=== PATIENT | male | born 1945 ===

== ENCOUNTER 2017-05-08 06:16 | Day surgery (SDC) | payer MEDICARE ==
[2017-05-04 08:04] VITALS: BMI 26.4
[2017-05-08 06:49] LABS: ADD MANUAL DIFF? NO
[2017-05-08 07:06] LABS: INR 0.99 (0.93-1.08); PARTIAL THROMBOPLASTIN TIME 27.2 Seconds (23.7-30.8)
[2017-05-08 07:08] LABS: BASO # 0.03 K/mm3 (0.0-2.0); BASO % 0.4 % (0.0-3.0); EOS # 0.1 (0.0-0.7); EOS % 1.9 % (1.5-5.0); GRAN # 4.42 (1.4-6.5); GRAN % 63.8 % (50.0-68.0); HEMATOCRIT 38.5 % (42.0-52.0); LYMPH # 1.6 (1.2-3.4); LYMPH % 23.5 % (22.0-35.0); MEAN CORPUSCULAR HEMOGLOBIN 31.1 pg (25.0-35.0); MEAN CORPUSCULAR HGB CONC 34.5 g/dl (31.0-37.0); MEAN PLATELET VOLUME 10.1 fl (7.0-11.0); MONO # 0.7 (0.1-0.6); MONO % 10.4 % (1.0-6.0); PLATELET COUNT 164 10^3/uL (120.0-450.0); RED CELL DISTRIBUTION WIDTH 13.2 % (11.5-14.5); WHITE BLOOD COUNT 6.9 10^3/ul (4.5-11.0)
[2017-05-08] MEDS ORDERED: Lidocaine 2% Inj (20ml) ONE (08:06)
[2017-05-08] MEDS ORDERED: Phenylephrine 10 mg/ml Inj ONE (08:07)
[2017-05-08] MEDS ORDERED: Iodixanol 320 MG/ML 200 ML BOTTLE IV ONE (08:07)
[2017-05-08] MEDS ORDERED: Nitroglycerin 50mg in D5W 0 MG/0 ML BOTTLE IV ONE (08:07)
[2017-05-08] MEDS ORDERED: Iohexol 350mgl/ml 50 ML ONE (08:07)
[2017-05-08] MEDS ORDERED: Iodixanol 320 MG/ML 100 ML BOTTLE IV ONE (08:07)
[2017-05-08 08:32] LABS: BLOOD UREA NITROGEN 12 mg/dL (7-21); CALCIUM 9.3 mg/dL (8.4-10.5); CARBON DIOXIDE 23 mmol/L (21-33); CHLORIDE 105 mmol/L (95-110); CHOLESTEROL 134 mg/dL (130-200); GFR AFRICAN-AMERICAN > 60; GLUCOSE,RANDOM 163 mg/dL (70-110); POTASSIUM 4.4 mmol/L (3.6-5.0); SODIUM 139 mmol/L (132-148)
[2017-05-08] MEDS: Midazolam 2 MG/2 ML VIAL ONE ×2 (08:52→11:44)
[2017-05-08] MEDS: Metoprolol 1 mg/ml Inj IVP ONE ×2 (09:30→11:43)
[2017-05-08] MEDS ORDERED: Sodium Chloride 0.45% 1,000 ML IV SCH (09:45)
[2017-05-08 10:44] VITALS: TEMP 98.1; O2SAT 100
[2017-05-08 10:45] VITALS: RESP 16
--- NOTE | 2017-05-08 10:47 | CP.PCM.PN ---
Subjective - Date & Time of Evaluation Date of Evaluation: 05/08/17 Time of Evaluation: 10:00 - Subjective Subjective: cardiac cath performed. stent RCA with bare metal stent. continue ASA/Plavix. d/c home today. Objective - Vital Signs/Intake and Output Vital Signs (last 24 hours): Temp Pulse Resp BP Pulse Ox 98.1 F 77 16 148/82 100 05/08/17 10:10 05/08/17 10:40 05/08/17 10:40 05/08/17 10:40 05/08/17 10:10 Intake and Output: 05/08/17 05/08/17 06:59 18:59 Intake Total 10 Balance 10 - Medications Medications: Current Medications Sodium Chloride (Sodium Chloride 0.45%) 1,000 mls @ 100 mls/hr IV .Q10H MARIAMA Last Admin: 05/08/17 10:19 Dose: 100 mls/hr - Labs Labs: 05/08/17 06:30 05/08/17 06:30 PT 10.7 Seconds (9.9-11.8) 05/08/17 06:30 INR 0.99 (0.93-1.08) 05/08/17 06:30 APTT 27.2 Seconds (23.7-30.8) 05/08/17 06:30
--- NOTE | 2017-05-08 15:31 | CARD ---
APPROVED REPORT EKG Measurement Heart [id number] <Conclusion> Normal sinus rhythm LVH NSSTW changes
[2017-05-08 16:04] VITALS: BP 129/64; PULSE 80
--- NOTE | 2017-05-08 20:03 | CARD ---
APPROVED REPORT Procedure(s) performed: Coronary Angiography and Percutaneous Coronary Intervention HISTORY 55%. (EF Method: LVG), diabetes mellitus with oral treatment , previous diagnostic cath, tobacco history() : The patient is a former smoker , hypertension , dyslipidemia . INDICATION The indication(s) include : unstable angina . CASE TECHNIQUE The patient was brought electively to the Cardiac Catheterization Laboratory in a fasting state and was prepped and draped in a sterile manner. The was infiltrated with 2% Lidocaine subcutaneous without difficulty. Coronary angiography was performed using coronary diagnostic catheters. The right coronary system was accessed and visualized with a 6 Fr JR 4 catheter. Closure device was deployed with a 6 Fr Angio-Seal without any complications. The patient tolerated the procedure well and there were no complications associated with the procedure. The right coronary artery is a medium size vessel . There is a 70% stenosis in the mid segment. PCI Technique Lesion Anticoagulation was achieved with Angiomax. Percutaneous coronary intervention was performed on the mid right coronary artery. The lesion stenosis prior to intervention was 70% with SHAKA 3 flow. A 6 Fr JR 4 Guide Catheter was used to engage the ostium. A 0.014 x 190 cm BMW [place] II J Tip Interventional Guidewire was used to cross the lesion. BALLOON DILATION A Balloon catheter 2.5 x 15 mm Trek RX was inserted and inflated up to 8.00atm for 7seconds. STENT DEPLOYMENT A bare metal stent 3.0 x 22 mm Integrity BMS was inserted and inflated up to 10.00atm for 17seconds. POST STENT DEPLOYMENT BALLOON DILATION A Balloon catheter 3.5 x 12 mm Sprinter NC was inserted and inflated up to 14.00atm for 9seconds. Final angiography reveals 0 % stenosis with SHAKA 3 flow. Conclusion Successful PCI mid RCA with an Integrity Bare metal stent. Recommendations Aggressive Medical Therapy ASA/Plavix.
== END 2017-05-08 16:30 | disposition home or self-care (01) ==
LOC: CATH 06:16 → 2RSO 10:05 → CATH 16:30
PROVIDERS: ATTEND Internal Medicine Cardiovascular Disease
DX: I25.110 Atherosclerotic heart disease of native coronary artery with unstable angina pectoris (principal); I10 Essential (primary) hypertension; E78.5 Hyperlipidemia, unspecified; E11.9 Type 2 diabetes mellitus without complications; Z79.84 Long term (current) use of oral hypoglycemic drugs; Z87.891 Personal history of nicotine dependence
CPT/HCPCS: 36415; 80048; 80061; 85025; 85175; 85610; 85730; 86850; 86900; 92928; 93005; 99152; 99153; C1725 ×2; C1760; C1769 ×2; C1876; C1887; C2629; J0360; J0583; J1644; J2250; J3010; J7030 ×2; Q9967